=== PATIENT | male | born 1940 | race Caucasian/White ===

== ENCOUNTER → 2016-11-26 | Day surgery (SDC) | payer MEDICARE, OTHER ==
[~2016-11-26] MED LIST: ALFU10TA2 PO; CELE10TA PO; FOLI1TAB4 PO; JANU50TA8 PO; LIDOCAINE HCL 1% PF 30 ML VIAL INFIL ONE; MIRA25TA PO; NAPR500T PO; PREG25 PO; PROS5TAB PO; RABE1TAB PO; SODIUM CHLORIDE 0.9% 10 ML VIAL ONE; VITA10002 PO; XARE15TA PO
--- NOTE | 2016-11-28 07:46 | M6 ---
cc: ESTIVEN REAL M.D. DATE 11/26/2016 DATE OF 1940 PROCEDURE Fluoroscopically guided injection neurolytic substance right sacroiliac joint (3% phenol). History and physical was completed and signed. Consent was signed. Procedure site was marked. Medications were listed and reconciled. Pain score was recorded. Allergies were noted. Time out was taken. Fluoroscopy time was recorded where applicable. PROCEDURE NOTE Blood pressure cuff and pulse oximeter were applied. The patient was placed in the prone position on a Randy table. His back was prepped with alcohol and 10% Betadine solution, draped with sterile drapes. Fluoroscopy was used shooting from medial to lateral to clearly visualize the posterior joint line of the right sacroiliac joint. The skin was infiltrated with 1% Xylocaine using a 27-gauge needle. Then a 5-inch, 22-gauge spinal needle was advanced into the joint under fluoroscopic guidance. There was negative aspiration for blood or any other type of fluid and the patient was given 2 mL of 3% phenol. Following this the patient was taken to the recovery room with stable vital signs, neurologically intact. W. MD TAE Morales/PHYLLIS /8:10 AM /7:38 AM
== END | disposition home or self-care (01) ==
LOC: PHSDC 06:30
PROVIDERS: ATTEND Pain Medicine Interventional Pain Medicine
DX: M54.5 Low back pain (principal)
CPT/HCPCS: 64640

== ENCOUNTER → 2016-12-04 | Day surgery (SDC) | payer MEDICARE, OTHER ==
[~2016-12-04] MED LIST changes: +LIDOCAINE HCL 1% 30 ML VIAL INFIL ONE; -LIDOCAINE HCL 1% PF 30 ML VIAL INFIL ONE
--- NOTE | 2016-12-07 10:05 | M6 ---
cc: ESTIVEN REAL M.D. DATE: 12/04/2016 DATE OF : 1940 PROCEDURE His fluoroscopically guided injection neurolytic substance right sacroiliac joint(3% phenol). History and physical was completed and signed. Consent was signed. Procedure site was marked. Medications were listed and reconciled. Pain score was recorded. Allergies were noted. Time out was taken. Fluoroscopy time was recorded where applicable. Blood pressure cuff, pulse oximeter and EKG were applied. The patient was placed in the prone position on a Randy table floor of his sacral area was prepped with alcohol and 10% Betadine solution, draped with sterile drapes. Fluoroscopy was used shooting from medial to lateral to clearly visualize the posterior joint line of the right sacroiliac joint. A 5-inch 22-gauge spinal needle was advanced into the joint under fluoroscopic guidance. There was negative aspiration for blood or any other type of fluid and the patient was given 2 cc of 3% phenol. Following this the patient was taken to the recovery room with stable vital signs neurologically intact. W. MD TAE Morales/sanchez /7:44 AM /10:03 AM
== END | disposition home or self-care (01) ==
LOC: PHSDC 06:28
PROVIDERS: ATTEND Pain Medicine Interventional Pain Medicine
DX: M54.5 Low back pain (principal)
CPT/HCPCS: 64640

== ENCOUNTER → 2017-02-11 | Day surgery (SDC) | payer MEDICARE, OTHER ==
[~2017-02-11] MED LIST changes: +BUPIVACAINE HCL PF 0.75% 30 ML VIAL ONE; -LIDOCAINE HCL 1% 30 ML VIAL INFIL ONE; -SODIUM CHLORIDE 0.9% 10 ML VIAL ONE; +TRIAMCINOLONE ACETONIDE 40 MG/ML VIAL I-ARTICULR ONE
--- NOTE | 2017-02-14 11:37 | M6 ---
cc: ESTIVEN ALBERTO M.D. DATE 02/11/2017 DATE OF 1940 PROCEDURE Fluoroscopically guided injection bilateral lumbar facet joints (bilateral L3-4, L4-5 and L5-S1. PROCEDURE NOTE History and physical was completed and signed. Consent was signed. Procedure site was marked. Medications were listed and reconciled. Pain score was recorded. Allergies were noted. Time out was taken. Fluoroscopy time was recorded where applicable. Sedation was administered or directed by Dr. Alberto. The patient was given oxygen. The patient was monitored by a registered nurse. Total procedure time was greater than 15 minutes. IV was started, blood pressure cuff, pulse oximeter and EKG were applied. The patient was placed in the prone position on a Randy table. His back was prepped with alcohol and 10% Betadine solution and draped with sterile drapes. Fluoroscopy was used in a Hugo dog view to clearly visualize the bilateral lumbar facet joints at L3-4, L4-5 and L5-S1. Separate sterile 3-1/2-inch 25-gauge spinal needles were advanced into each joint under fluoroscopic guidance. There was negative aspiration for blood or any other type of fluid. At each location, the patient was given 1 mL of Marcaine 0.75% which contained 10 mg of Kenalog. Following the procedure, the patient was taken to the recovery room with stable vital signs neurologically intact. He will be evaluated immediately and with followup to determine if he has a subjective decrease in his usual pain and a corresponding objective increase his functional capabilities. WMD TAE Benedict/CHANEL /8:16 AM /11:39 AM
== END | disposition home or self-care (01) ==
LOC: PHSDC 06:54
PROVIDERS: ATTEND Pain Medicine Interventional Pain Medicine
DX: M54.5 Low back pain (principal); E11.9 Type 2 diabetes mellitus without complications
CPT/HCPCS: 64493; 64494; 64495; J3301

== ENCOUNTER → 2018-02-03 | Day surgery (SDC) | payer MEDICARE, OTHER ==
[~2018-02-03] MED LIST changes: -BUPIVACAINE HCL PF 0.75% 30 ML VIAL ONE; +FOLI1TAB6 PO; -JANU50TA8 PO; +LIDOCAINE HCL 1% 30 ML VIAL INFIL ONE; +LYRI100C PO; +METF1000 PO; -NAPR500T PO; +NAPR500T2 PO; -PREG25 PO; +ROSU1TAB4 PO; +SODIUM CHLORIDE 0.9% 10 ML VIAL ONE; -TRIAMCINOLONE ACETONIDE 40 MG/ML VIAL I-ARTICULR ONE; -VITA10002 PO; -XARE15TA PO; +XARE20TA PO; +methylPREDNISolone ACETATE 80 MG/ML VIAL ONE
--- NOTE | 2018-02-03 07:53 | M6 ---
cc: Slim Alberto MD DATE: 02/03/2018 History and physical was completed and signed. Consent was signed. Procedure site was marked. Medications were listed and reconciled. Pain score was recorded. Allergies were noted. Time out was taken. Fluoroscopy time was recorded where applicable. Blood pressure cuff, pulse oximeter and EKG were applied. The patient was placed in the prone position on the Randy table. His back was prepped with alcohol and 10% Betadine solution and draped with sterile drapes. Fluoroscopy was used to visualize the L5-S1 interlaminar space. The skin was infiltrated with 1% Xylocaine, using a 27-gauge needle. Then, a 3-1/2 inch, 18-gauge Bernard needle was advanced using fluoroscopic guidance and the loss of resistance technique into the epidural space at L5-S1, slightly to the right of the midline. There was negative aspiration for blood or any other type of fluid, and the patient was given 10 mL of 0.5% Xylocaine and 80 mg of Depo-Medrol. Following the procedure, the patient was taken to the recovery room with stable vital signs, neurologically intact. MD TAE Rios/KAYE , 07:43 AM , 07:52 AM
== END | disposition home or self-care (01) ==
LOC: PHSDC 06:23
PROVIDERS: ATTEND Pain Medicine Interventional Pain Medicine
DX: M54.5 Low back pain (principal); M79.652 Pain in left thigh; M79.651 Pain in right thigh
CPT/HCPCS: 62323; J1040